=== PATIENT | female | born 1935 | race Caucasian/White ===

== ENCOUNTER → 2016-04-15 | Outpatient (REF) | payer MEDICARE ==
[2016-04-15 18:58] LABS: INR 0.99
== END ==
LOC: M LAB REF 17:34
PROVIDERS: ATTEND Internal Medicine
DX: I48.91 Unspecified atrial fibrillation (principal)

== ENCOUNTER → 2017-01-21 | Outpatient (REF) | payer MEDICARE | LOC: M LAB REF 17:39 | PROVIDERS: ATTEND Internal Medicine | DX: R41.81 Age-related cognitive decline (principal); N39.0 Urinary tract infection, site not specified ==

== ENCOUNTER 2017-09-22 07:58 | Day surgery (SDC) | payer MEDICARE ==
[~2017-09-22 07:58] MED LIST: ACETAMINOPHEN 325 MG TAB PO
[2017-09-22] MEDS ORDERED: CYCLOPENTOLATE 2% OPHTH SOLN 2ML BTL As Ordered (08:02)
[2017-09-22] MEDS ORDERED: OFLOXACIN 0.3 % (OCUFLOX) OPTH SOL 5ML As Ordered (08:02)
[2017-09-22] MEDS ORDERED: TROPICAMIDE 1% OPHTH SOLN 2ML As Ordered (08:02)
[2017-09-22] MEDS ORDERED: PHENYLEPHRINE 2.5% OPHTH SOL 2ML As Ordered (08:02)
[2017-09-22 08:18] LABS: BEDSIDE GLUCOSE 98 MG/DL (83-110)
[2017-09-22] MEDS: PHENYLEPHRINE 2.5% OPHTH SOL 2ML OD (08:27)
[2017-09-22] MEDS: CYCLOPENTOLATE 2% OPHTH SOLN 2ML BTL OD (08:27)
[2017-09-22] MEDS: TROPICAMIDE 1% OPHTH SOLN 2ML OD (08:27)
[2017-09-22] MEDS: OFLOXACIN 0.3 % (OCUFLOX) OPTH SOL 5ML OD (08:27)
[2017-09-22] MEDS: LIDOCAINE 3.5 % 1ML OPHTH TOPICAL GEL OU (08:28)
[2017-09-22] MEDS: METOPROLOL SUCC (TopROL XL) 100MG *XL* TAB PO (08:37)
[2017-09-22] MEDS ORDERED: fentaNYL 100 MCG/2 ML INJECTION (J3010) As Ordered (09:17)
[2017-09-22] MEDS ORDERED: MIDAZOLAM INJ 2 MG/2 ML VIAL (J2250) As Ordered (09:17)
[2017-09-22] MEDS: MOXIFLOXACIN IN BSS 0.25MG/0.25ML INTRACAMERAL INJ (OR EYE ONLY)(J2280) As Ordered (09:46)
[2017-09-22] MEDS: POVIDONE-IODINE 5% OPHTH PREP SOL 30ML As Ordered (09:46)
[2017-09-22] MEDS: LIDOCAINE 1% SDV 5 ML VIAL As Ordered (09:46)
[2017-09-22] MEDS: PHENYLEPHRINE HCL 10 % OPHTH. SOL 5ML OD (09:47)
[2017-09-22] MEDS: HEALON DUET (HEALON 10MG/ML 0.55ML & HEALON ENDOCOAT 30MG/ML 0.85ML) As Ordered (09:47)
[2017-09-22] MEDS: TRIAMCINOLONE PRES FR 40 MG/ML 1ML(TRIESENCE)(OR EYE ONLY)(J3300 PER 1MG) As Ordered (09:47)
[2017-09-22] MEDS: BSS with VANC/TOB/EPI for EYE CASES IR (09:47)
[2017-09-22] MEDS ORDERED: AcetaZOLAMIDE 500 MG ER CAP As Ordered (10:17)
[2017-09-22] MEDS: AcetaZOLAMIDE 500 MG ER CAP PO (10:20)
[2017-09-22] MEDS ORDERED: TRIMETHOBENZAMIDE 300 MG CAP PO (10:30)
== END 2017-09-22 10:33 | disposition home or self-care (01) ==
LOC: M SDC 07:58
DX: H25.9 Unspecified age-related cataract (principal); I48.91 Unspecified atrial fibrillation; E11.9 Type 2 diabetes mellitus without complications; I10 Essential (primary) hypertension; E78.5 Hyperlipidemia, unspecified; Z79.899 Other long term (current) drug therapy; Z87.891 Personal history of nicotine dependence
CPT/HCPCS: 66984

== ENCOUNTER 2017-09-30 07:57 | Day surgery (SDC) | payer MEDICARE ==
[~2017-09-30 07:57] MED LIST changes: +PHENYLEPHRINE HCL 10 % OPHTH. SOL 5ML OS
[2017-09-30] MEDS ORDERED: LIDOCAINE 1% MDV 20ML VIAL SQ (08:15)
[2017-09-30 08:49] LABS: BEDSIDE GLUCOSE 122 MG/DL (83-110)
[2017-09-30] MEDS: LIDOCAINE 3.5 % 1ML OPHTH TOPICAL GEL OU (09:06)
[2017-09-30] MEDS: CYCLOPENTOLATE 2% OPHTH SOLN 2ML BTL OS (09:07)
[2017-09-30] MEDS: TROPICAMIDE 1% OPHTH SOLN 2ML OS (09:07)
[2017-09-30] MEDS: OFLOXACIN 0.3 % (OCUFLOX) OPTH SOL 5ML OS (09:07)
[2017-09-30] MEDS: PHENYLEPHRINE 2.5% OPHTH SOL 2ML OS (09:07)
[2017-09-30] MEDS: POVIDONE-IODINE 5% OPHTH PREP SOL 30ML As Ordered (10:06)
[2017-09-30] MEDS: LIDOCAINE 1% SDV 5 ML VIAL As Ordered (10:09)
[2017-09-30] MEDS: BSS with VANC/TOB/EPI for EYE CASES IR (10:10)
[2017-09-30] MEDS: MOXIFLOXACIN IN BSS 0.25MG/0.25ML INTRACAMERAL INJ (OR EYE ONLY)(J2280) As Ordered (10:16)
[2017-09-30] MEDS: TRIAMCINOLONE PRES FR 40 MG/ML 1ML(TRIESENCE)(OR EYE ONLY)(J3300 PER 1MG) As Ordered (10:16)
[2017-09-30] MEDS: HEALON DUET (HEALON 10MG/ML 0.55ML & HEALON ENDOCOAT 30MG/ML 0.85ML) As Ordered (10:16)
[2017-09-30] MEDS ORDERED: fentaNYL 100 MCG/2 ML INJECTION (J3010) As Ordered (10:42)
[2017-09-30] MEDS ORDERED: MIDAZOLAM INJ 2 MG/2 ML VIAL (J2250) As Ordered (10:42)
[2017-09-30] MEDS ORDERED: TRIMETHOBENZAMIDE 300 MG CAP PO (10:45)
[2017-09-30] MEDS: AcetaZOLAMIDE 500 MG ER CAP PO (10:51)
== END 2017-09-30 11:12 | disposition home or self-care (01) ==
LOC: M SDC 07:57
DX: H25.9 Unspecified age-related cataract (principal); I48.91 Unspecified atrial fibrillation; I10 Essential (primary) hypertension; E11.9 Type 2 diabetes mellitus without complications; Z79.01 Long term (current) use of anticoagulants; Z79.899 Other long term (current) drug therapy
CPT/HCPCS: 66984

== ENCOUNTER → 2017-11-03 | Outpatient (REF) | payer MEDICARE ==
[2017-11-03 19:39] LABS: VITAMIN B12 LEVEL 246 PG/ML
[2017-11-03 19:40] LABS: FOLATE 19.5 NG/ML
== END ==
LOC: M LAB REF 17:10
DX: G31.84 Mild cognitive impairment of uncertain or unknown etiology (principal)
CPT/HCPCS: 82746

== ENCOUNTER → 2018-02-04 | Outpatient (REF) | payer MEDICARE | LOC: M LAB REF 15:50 | DX: L02.31 Cutaneous abscess of buttock (principal) | CPT/HCPCS: 87186 ==

== ENCOUNTER → 2018-06-19 | Outpatient (CLI) | payer MEDICARE ==
[~2018-06-19] MED LIST changes: -ACETAMINOPHEN 325 MG TAB PO; +BUPR150T5 PO; +GLIM2TAB29 PO; +JANT5TAB PO; +LISI40TA PO; +METO200T28 PO; -PHENYLEPHRINE HCL 10 % OPHTH. SOL 5ML OS; +SIMV40TA2 PO
--- NOTE | 2018-06-19 20:31 | REP ---
Chest x-ray: Two views. History: Acute bronchitis. Comparison chest x-ray April 16, 2016. Findings: The lungs are symmetrically aerated and free of infiltrate. Pleural angles are sharp. Mitral annular calcification is seen. Mild cardiomegaly is observed. The aorta is tortuous. These findings are unchanged. There are mild degenerative changes in the thoracic spine again noted. There are surgical clips in the right upper quadrant of the abdomen. Pulmonary vasculature is not increased. Some vascular calcifications noted. Impression: Mildly prominent heart. Otherwise no acute disease. Electronically Signed by Francisco J Romero MD 06/20/2018 07:41 A
== END ==
LOC: M WUC 18:17
PROVIDERS: ATTEND Physician Assistant
DX: R06.2 Wheezing (principal); I51.7 Cardiomegaly